=== PATIENT | male | born 1955 ===

== ENCOUNTER 2018-02-12 18:38 | Emergency (ER) | payer OTHER ==
[2018-02-12 19:12] VITALS: RESP 20; TEMP 98.6
[2018-02-12] MEDS ORDERED: Sodium Chloride 0.9% 500 ML IV ONE (19:52)
[2018-02-12] MEDS ORDERED: Sodium Chloride 0.9% 1,000 ML ONE (19:59)
[2018-02-12 20:04] LABS: BASO # 0.1 K/uL (0.0-0.2); BASO % 0.6 % (0.0-2.0); EOS # 0.2 K/uL (0.0-0.7); EOS % 2.1 % (0.0-4.0); HEMOGLOBIN 12.7 g/dL (12.0-18.0); LYMPH # 2.5 K/uL (1.0-4.3); LYMPH % 27.2 % (20.0-40.0); MEAN CELL VOLUME 78.3 fL (80.0-94.0); MEAN CORPUSCULAR HEMOGLOBIN 26.4 pg (27.0-31.0); MEAN CORPUSCULAR HGB CONC 33.7 g/dL (33.0-37.0); MEAN PLATELET VOLUME 7.1 fL (7.2-11.7); MONO # 0.9 K/uL (0.0-0.8); MONO % 10.3 % (0.0-10.0); NEUT # 5.5 K/uL (1.8-7.0); NEUT % 59.8 % (50.0-75.0); NRBC % 0.1 % (0.0-2.0); RBC 4.83 Mil/uL (4.40-5.90); RED CELL DISTRIBUTION WIDTH 15.3 % (11.5-14.5); WHITE BLOOD COUNT 9.2 K/uL (4.8-10.8)
[2018-02-12 20:25] LABS: ALB/GLOB RATIO 1.2 (1.0-2.1); ALBUMIN 4.2 g/dL (3.5-5.0); ALT/SGPT 29 U/L (21-72); AST/SGOT 30 U/L (17-59); BLOOD UREA NITROGEN 14 mg/dL (9-20); CALCIUM 9.5 mg/dl (8.6-10.4); GFR NON-AFRICAN AMERICAN > 60
[2018-02-12 20:33] LABS: B-TYPE NATRIURETIC PEPTIDE 65.9 pg/mL (0-900)
--- NOTE | 2018-02-12 21:09 | C.PDOC ---
History Of Present Illness 62 year old male with a history of hypertension and hyperlipidemia presents to the ED for evaluation of abdominal discomfort since 1 day ago. States the pain, nausea, headaches, dizziness, and body weakness began after eating fish from a restaurant. Denies fever, vomiting, and any other associated symptoms. Time Seen by Provider: 02/12/18 19:40 Chief Complaint (Nursing): Dizziness/Lightheaded History Per: Patient History/Exam Limitations: no limitations Onset/Duration Of Symptoms: Days Current Symptoms Are (Timing): Still Present Past Medical History Reviewed: Historical Data, Nursing Documentation, Vital Signs Vital Signs: Last Vital Signs Temp 98.6 F 02/12/18 18:54 Pulse 67 02/12/18 18:54 Resp 20 02/12/18 18:54 BP 145/83 02/12/18 18:54 Pulse Ox 96 02/12/18 18:54 - Medical History PMH: Hypercholesterolemia Family History: States: Unknown Family Hx - Social History Hx Alcohol Use: No Hx Substance Use: No Review Of Systems Except As Marked, All Systems Reviewed And Found Negative. Constitutional: Negative for: Fever, Chills Gastrointestinal: Positive for: Nausea, Other (abdominal discomfort. ). Negative for: Vomiting Neurological: Positive for: Weakness (generlized to the entire body. ), Headache, Dizziness Physical Exam - Physical Exam Appears: Non-toxic Skin: Normal Color, Warm, Dry Head: Atraumatic, Normacephalic Eye(s): bilateral: Normal Inspection Oral Mucosa: Moist Neck: Normal ROM, Supple Cardiovascular: Rhythm Regular, No Murmur Respiratory: Normal Breath Sounds, No Rales, No Rhonchi, No Wheezing Gastrointestinal/Abdominal: Normal Exam, Other (mild abdomen discomfort to the right upper quadrant ) Back: Normal Inspection Extremity: Normal ROM (x4) Neurological/Psych: Oriented x3, Normal Speech, Normal Motor, Normal Sensation Gait: Steady (able to ambulate.) ED Course And Treatment - Laboratory Results Result Diagrams: 02/12/18 19:59 02/12/18 19:59 O2 Sat by Pulse Oximetry: 96 (RA) Pulse Ox Interpretation: Normal Medical Decision Making Medical Decision Making: Plan: --Blood sent. --EKG Patient feeling much better, EKG NSR, no ST elevations/depressions will d/c with PMD f/u Disposition Counseled Patient/Family Regarding: Studies Performed, Need For Followup - Disposition Disposition: HOME/ ROUTINE Disposition Time: 22:10 Condition: IMPROVED Instructions: Dizziness, Nonvertigo, (DC) Forms: Gen Discharge Inst [place], [facility] ([place]) - POA Present On Arrival: None - Clinical Impression Clinical Impression: Dizziness - Scribe Statement The provider has reviewed the documentation as recorded by the Scribe (Jovana Payan) Provider Attestation: All medical record entries made by the Scribe were at my direction and persona lly dictated by me. I have reviewed the chart and agree that the record accurately reflects my personal performance of the history, physical exam, medical decision making, and the department course for this patient. I have also personally directed, reviewed, and agree with the discharge instructions and disposition.
[2018-02-12 22:20] VITALS: BP 119/67; PULSE 64; O2SAT 98
--- NOTE | 2018-02-14 12:32 | CARD ---
APPROVED REPORT Date of service: 02/12/2018 EKG Measurement Heart [id number] <Conclusion> Normal sinus rhythm Normal ECG
== END 2018-02-12 22:21 | disposition home or self-care (01) ==
LOC: C.ER 18:38
DX: R42 Dizziness and giddiness (principal)
CPT/HCPCS: 80053; 82948; 83880; 84484; 85025; 93005; 96360; 99285; J7040